=== PATIENT | male | born 1970 ===

== ENCOUNTER 2024-12-16 14:04 | Day surgery (SDC) | payer OTHER ==
[~2024-12-16] VITALS: Ht 185.4 cm; Wt 105.3 kg
[~2024-12-16 14:04] MED LIST: DIPH25; Glycopyrrolate 0.2 MG/ML 1MLVIAL ONE; Lactated Ringer's 0 ML IV ONE; Lidocaine 2% 5 ML SDV ONE; Lidocaine HCl/Pf 1% 5 ML VIAL ONE; MELA3; Ondansetron HCl 2 MG / ML 2ML Vial ONE; ePHEDrine Sulfate 50 MG/ML 1ML Injection ONE; propofoL 50 ML IV ONE
[2024-12-16] MEDS ORDERED: ATOR20 (14:22)
[2024-12-16] MEDS ORDERED: METF500 (14:22)
[2024-12-16] MEDS ORDERED: [UNRECOGNIZED DRUG - SUPPLY] (14:23)
[2024-12-16] MEDS ORDERED: MOUNJARO2.5 MG/0.5 (14:23)
[2024-12-16] MEDS ORDERED: Lactated Ringer's 1,000 ML IV ONE ×2 (14:41→15:06)
[2024-12-16] MEDS ORDERED: propofoL 0 ML IV ONE (15:06)
== END 2024-12-16 16:05 | disposition home or self-care (01) ==
LOC: ORSCSDS 14:04
PROVIDERS: Surgery
PROC: 0DBH8ZX Excision of Cecum, Via Natural or Artificial Opening Endoscopic, Diagnostic (ICD-10-PCS; principal; 2024-12-16 15:30)
DX: Z12.11 Encounter for screening for malignant neoplasm of colon (principal); R19.5 Other fecal abnormalities; D12.0 Benign neoplasm of cecum; E11.65 Type 2 diabetes mellitus with hyperglycemia; Z79.85 Long-term (current) use of injectable non-insulin antidiabetic drugs; Z79.84 Long term (current) use of oral hypoglycemic drugs; Z79.899 Other long term (current) drug therapy
CPT/HCPCS: 82947; 88305; J2003; J2405; J2704; J7120

== ENCOUNTER 2025-03-09 14:25 | Observation (INO) | payer OTHER ==
[~2025-03-09] VITALS: Ht 185.4 cm; Wt 99.1 kg
[~2025-03-09 14:25] MED LIST changes: +ATOR20 PO; -Glycopyrrolate 0.2 MG/ML 1MLVIAL ONE; -Lactated Ringer's 0 ML IV ONE; -Lidocaine 2% 5 ML SDV ONE; -Lidocaine HCl/Pf 1% 5 ML VIAL ONE; +METF500 PO; +MOUNJARO2.5 MG/0.5 SC; -Ondansetron HCl 2 MG / ML 2ML Vial ONE; +[UNRECOGNIZED DRUG - SUPPLY]; -ePHEDrine Sulfate 50 MG/ML 1ML Injection ONE; -propofoL 50 ML IV ONE
[2025-03-09 16:39] LABS: BASOPHILS ABSOLUTE AUTO 0.04 K/mm3 (0.00-0.23); BASOPHILS PERCENT AUTO 0 % (0-2); EOSINOPHILS ABSOLUTE AUTO 0.22 K/mm3 (0.00-0.68); EOSINOPHILS PERCENT AUTO 1 % (0-6); Hematocrit 43.1 % (37.0-53.0); Hemoglobin 14.6 g/dL (13.5-17.5); IMMATURE GRAN ABSOLUTE AUTO 0.06 K/mm3 (0.00-0.10); IMMATURE GRAN PERCENT AUTO 0 % (0-1); LYMPHOCYTES ABSOLUTE AUTO 3.31 K/mm3 (0.84-5.20); LYMPHOCYTES PERCENT AUTO 22 % (21-46); MONOCYTES ABSOLUTE AUTO 1.45 K/mm3 (0.16-1.47); MONOCYTES PERCENT AUTO 10 % (4-13); Mean Corpuscular HGB Conc 33.9 g/dL (31.5-36.5); Mean Corpuscular Volume 89 fL (80-100); NEUTROPHILS ABSOLUTE AUTO 10.21 K/mm3 (1.96-9.15); NEUTROPHILS PERCENT AUTO 67 % (41-73); NRBC ABSOLUTE 0.00 K/mm3 (0.00-0.02); NRBC Auto 0.0 /100 WBC (0.0-0.2); Platelet Count 225 K/mm3 (150-400); RDW Coefficient Variation 12.9 % (11.7-14.2); RDW Standard Deviation 42.1 fL (35.1-46.3)
[2025-03-09 17:30] LABS: Alanine Aminotransfer (ALT/SGP 41.0 U/L (12-78); Albumin, Blood 3.9 g/dL (3.4-5.0); Albumin/Globulin Ratio 1.1 (0.8-1.8); Anion Gap 7.0 mmol/L (3-11); Aspartate Aminotrans (AST/SGOT 18.0 U/L (12-37); Bilirubin, Total 0.7 mg/dL (0.1-1.0); Blood Urea Nitrogen 10.0 mg/dL (8-24); CO2, Blood 29.0 mmol/L (21-32); Calcium, Blood 9.3 mg/dL (8.5-10.1); Chloride, Blood 103.0 mmol/L (98-108); Creatinine, Blood 0.86 mg/dL (0.60-1.20); Globulin, Blood 3.6 g/dL (2.2-4.0); Glucose, Blood 134.0 mg/dL (70-99); Potassium, Blood 3.8 mmol/L (3.5-5.5); Sodium, Blood 135.0 mmol/L (136-145); Total Protein, Blood 7.5 g/dL (6.4-8.2)
[2025-03-09 17:38] LABS: Source, Urine Voided
[2025-03-09 17:52] LABS: Bilirubin, Urine Neg (Neg); Color, Urine Yellow (P-Yellow); Glucose Qualitative, Urine Neg (Neg); Ketones, Urine Neg (Neg); Leukocyte Esterase, Urine Neg (Neg); Protein, Urine Neg (Neg); Specific Gravity, Urine 1.020 (1.003-1.022); Urobilinogen, Urine NORM (Normal)
[2025-03-09] MEDS ORDERED: Ondansetron HCl 2 MG / ML 2ML Vial IV PRN (20:35)
[2025-03-09] MEDS ORDERED: FentaNYL Citrate 50 MCG/ML 2 ML Injection IV PRN (20:35)
[2025-03-09] MEDS ORDERED: NS 1,000 ML IV SCH (20:35)
[2025-03-09] MEDS ORDERED: Ketorolac Tromethamine 15mg Vial IV PRN (20:45)
[2025-03-09] MEDS ORDERED: Lactobacil 2-S.Thermo-Bifido 1 1 Cap PO SCH (21:00)
[2025-03-09] MEDS ORDERED: Ampicillin Sod/Sulbactam Sod 3 GM in NS 100 ML IV SCH (21:00)
[2025-03-09 22:55] VITALS: BP 136/76
[2025-03-10] VITALS (17 sets, daily range): BP systolic 110–149; BP diastolic 61–93
--- NOTE | 2025-03-10 05:36 | NUR ---
SHIFT SUMMARY PT ER ADMIT THIS SHIFT FOR ACUTE APPY. PLAN IS FOR PROCEDURE TODAY. PT HAS BEEN NPO SINCE MIDNIGHT. PAIN CONTROLLED PER EMAR. NO N/V. PT UP AND AMBULATING IDEPENDENTLY. ADMISSION COMPLETE. BED IN LOWEST POSITION, CALL LIGHT WITHIN REACH.
[2025-03-10] MEDS ORDERED: Bupivacaine 0.5% HCl 5 MG/ML 30MLVIAL ONE (10:56)
--- NOTE | 2025-03-10 10:56 | NUR ---
PT TO DAY SURGERY AT THIS TIME.
[2025-03-10] MEDS ORDERED: Ondansetron HCl 2 MG / ML 2ML Vial ONE (11:18)
[2025-03-10] MEDS ORDERED: Dexamethasone Sod Phos 10 MG/ML 1ML VIAL ONE (11:18)
[2025-03-10] MEDS ORDERED: FentaNYL Citrate 50 MCG/ML 2 ML Injection ONE ×3 (11:18→12:52)
--- NOTE | 2025-03-10 11:20 | NUR ---
PT HAS 20G IV TO LEFT AC THAT FLUSHES WELL AND FLOWS TO GRAVITY.
--- NOTE | 2025-03-10 11:36 | NUR ---
PT TO [facility] [facility] FOR PROCEDURE W/DR SANDOVAL. History, Chart, Medications and Allergies reviewed before start of procedure. Lungs clear T/O to Auscultation. Patient confirms NPO status and agrees with scheduled surgery. Pre-Op teaching done. Pt verbalizes understanding. PT HAS BRUISE TO ABD THAT HE REPORTS IS FROM HIS [facility] SHOT LAST FRIDAY. OR TEAM NOTIFIED. PT BELONGINGS LEFT IN PERSONAL ROOM ON SURGICAL FLOOR. PT GLASSES TAKEN TO PACU FOR SAFEKEEPING.
[2025-03-10] MEDS ORDERED: Sugammadex Sodium 200 MG/2ML SDV (100 MG/ML) ONE (11:52)
[2025-03-10] MEDS ORDERED: FentaNYL Citrate 50 MCG/ML 2 ML Injection IV PRN ×2 (12:40)
[2025-03-10] MEDS ORDERED: Ondansetron HCl 2 MG / ML 2ML Vial IV PRN (12:40)
[2025-03-10] MEDS ORDERED: Labetalol HCL 5 MG/ML 4ML Injection (Single Dose) IV PRN (12:40)
[2025-03-10] MEDS ORDERED: HYDROmorphone HCl/Pf 1MG SYR IV PRN (12:40)
--- NOTE | 2025-03-10 13:42 | NUR ---
POST OP S/P LAP APPY. PT ABLE TO SCOOT SELF OVER FROM GURNEY TO BED. X3 LAP SITES WITH STERI STRIPS TO ABD ARE CDI. PT DENIES PAIN, DENIES N/V. TOLERATING SIPS OF PO. POST OP VSS AND IN PROGRESS. ON 2L O2 VIA NC AND PLANNING TO WEAN TOLERATED. CALL LIGHT WITHIN REACH. SIG OTHER AT BEDSIDE FOR SUPPORT.
[2025-03-10] MEDS ORDERED: HYDROcodone 10-APAP 325 TAB PO PRN (14:30)
[2025-03-10] MEDS ORDERED: Ketorolac Tromethamine 30mg Vial IV PRN (14:40)
--- NOTE | 2025-03-10 17:04 | NUR ---
SHIFT SUMMARY S/P LAP APPY. X3 STERI STRIPS TO ABD ARE CDI. NORCO/TORADOL FOR PAIN CONTROL. ANYI REG DIET. UP TO RESTROOM INDEP TO VOID. PT POSSIBLY WANTS TO DISCHARGE HOME TONIGHT. AT BEDSIDE FOR SUPPORT. CALL LIGHT WITHIN REACH.
[2025-03-10] MEDS ORDERED: OXAYDO5 M1 PO (18:01)
--- NOTE | 2025-03-10 19:13 | NUR ---
DISCHARGE PT EDUCATED ON AND RECEIVED PRINTED DISCHARGE INSTRUCTIONS AND VERBALIZED AN UNDESTANDING. RX FOR OXYCODONE GIVEN TO PT'S TO FILL AT PHARMACY. PT AND SON GATHERED ALL PERSONAL BELONGINGS. IV LEFT IN PLACE UNTIL RETURNS TO TAKE PT HOME. CALL LIGHT WITHIN REACH.
[2025-03-11] MEDS ORDERED: MetFORMIN HCl 500 mg PO SCH (17:00)
== END 2025-03-10 20:00 | disposition home or self-care (01) ==
LOC: ER 14:25 → SURS 20:25
PROVIDERS: Emergency Medicine; Surgery; ADMIT Surgery
PROC: 0DTJ4ZZ Resection of Appendix, Percutaneous Endoscopic Approach (ICD-10-PCS; principal; 2025-03-10 11:30)
DX: K35.80 Unspecified acute appendicitis (principal); E11.9 Type 2 diabetes mellitus without complications; E78.5 Hyperlipidemia, unspecified; Z79.899 Other long term (current) drug therapy; Z79.84 Long term (current) use of oral hypoglycemic drugs
CPT/HCPCS: 74177; 80053; 81003; 82947; 83690; 85025; 88304; 96365-59; 96366; 96375; 96376; 99285-25; A9270; G0378; J0295; J1100; J1885; J2405; J2704; J3010; J7030; J7120; Q9967